=== PATIENT | female | born 1935 | race Caucasian/White ===

== ENCOUNTER 2019-03-21 20:09 | Inpatient (IN) | payer MEDICARE | END 2019-03-22 23:14 | disposition short-term general hospital (02) | LOC: EDH 20:09 → EDHIP 22:10 → 4AH 22:26 ==

== ENCOUNTER → 2022-06-03 | Outpatient (CLI) | payer MEDICARE ==
[~2022-06-03] MED LIST: ASPI-556 PO; ATOR20TA65 PO; CHOL100046 PO; HYDR-4153 PO; IPRA3AMP24 IH; ISOS60TA77 PO; LEVO75 PO; LOSA100T58 PO; METF-444 PO; NADO80TA2 PO; ROPI0.5T7 PO; SERT-439 PO; TICA90TA PO; TRIA1TAB5 PO
== END | disposition home or self-care (01) ==
LOC: RAH 12:04
PROVIDERS: ATTEND Nurse Practitioner Adult Health
DX: Z13.6 Encounter for screening for cardiovascular disorders (principal)
CPT/HCPCS: 93922